=== PATIENT | female | born 1995 | race Caucasian/White ===

== ENCOUNTER → 2017-04-30 | Outpatient (CLI) | payer MEDICAID | LOC: LAB 15:49 | DX: Z36 Encounter for antenatal screening of mother (principal) ==

== ENCOUNTER 2017-05-07 21:31 | Outpatient (CLI) | payer MEDICAID ==
[~2017-05-07] VITALS: Ht 154.9 cm; Wt 82.6 kg
[~2017-05-07 21:31] MED LIST: ACYCLOVIR 400M400 MG PO; BACTROBAN2% TP; HYDROCORTISONE 1%1 % TP; KEFLEX 500MG.500 MG PO; NOMEDS XX; ORTHO TRI-CYCLE1 TA1 PO; PRENATAL PLUS1 TA1 PO; PYRIDIUM 200MG200 MG PO; SEPTRA DS 800 M1 TAB PO; TYLENOL W/CODEI1 TA2 PO
[2017-05-07 22:18] VITALS: BP 128/85
== END 2017-05-08 00:11 | disposition home or self-care (01) ==
LOC: OBOUT 21:31 → OB 21:31 → OBOUT 05-08 00:11
DX: O62.9 Abnormality of forces of labor, unspecified (principal); Z3A.37 37 weeks gestation of pregnancy

== ENCOUNTER 2017-05-08 08:39 | Outpatient (CLI) | payer MEDICAID ==
[~2017-05-08] VITALS: Ht 154.9 cm; Wt 83.5 kg
[2017-05-08 09:00] VITALS: BP 116/78
== END 2017-05-08 09:45 | disposition home or self-care (01) ==
LOC: OBOUT 08:39 → OB 08:39 → OBOUT 09:45
DX: O26.893 Other specified pregnancy related conditions, third trimester (principal); Z3A.37 37 weeks gestation of pregnancy; N89.8 Other specified noninflammatory disorders of vagina

== ENCOUNTER 2017-05-11 18:02 | Outpatient (CLI) | payer MEDICAID ==
[~2017-05-11] VITALS: Ht 154.9 cm; Wt 81.9 kg
[2017-05-11 17:45] VITALS: BP 131/83
[2017-05-11 18:42] LABS: URINE BILIRUBIN - DIPSTICK NEGATIVE (NEG); URINE BLOOD NEGATIVE (NEG)
[2017-05-11 19:30] LABS: URINE RENAL CELLS OCC #/HPF; URINE SQUAMOUS CELLS 20-50 #/hpf (0-5)
== END 2017-05-11 20:45 | disposition home or self-care (01) ==
LOC: OBOUT 18:02 → OB 18:04 → OBOUT 20:45
PROVIDERS: Obstetrics & Gynecology
DX: O60.03 Preterm labor without delivery, third trimester (principal); Z3A.38 38 weeks gestation of pregnancy; M54.5 Low back pain; R10.9 Unspecified abdominal pain

== ENCOUNTER 2017-05-15 11:10 | Inpatient (IN) | payer MEDICAID ==
[~2017-05-15] VITALS: Ht 154.9 cm; Wt 81.6 kg
[2017-05-15 11:39] VITALS: BP 120/82
--- NOTE | 2017-05-15 12:45 | HISTORY AND PHYSICAL REPORT ---
History and Physical Demographics Admission date: 05/15/17 Chief Complaint: Contractions Primary Diagnosis: IUP 38 11/06 Allergies: Coded Allergies: No Known Drug Intolerances (- 05/11/17) History of present illness: Cici is a 22yo at 38wks 4d who presents with complaints of worsening contractions since 9am. She denies LOF/VB. She endorses FM. Her has been uncomplicated thus far. She had a prior of viable female in 2014. That was also uncomplicated. Patient reports that she is GBS negative. Medical history Family history: Hypertension Yes Immunization history: DT/Tetanus Has Never Had Flu Refused Pneumonia Refuses Other history: Angina: No AL: No Hypertension? No Hyperlipidemia? No CHF? No COPD? No Asthma? No CVA? No Seizures? No Diabetes? No GB Disease: Yes MRSA? No TB? No Cancer? No Surgical history: Previous Surgery?N Current home meds: Reported Medications MULTIVIT-MIN W/FE-FA ( Multivitamin Tablet) 1 TAB PO DAILY Social history Smoking history: Type N/A Packs/day < 1 Pack Are you/the child exposed to second-hand smoke: No Alcohol: Alcohol: No History of drug use: Drug Use? No Physical exam: Addmission vital signs: 1ST Vital Signs Result Date Time B/P 120/82 05/15 1139 Temp 98.2 05/15 1139 Pulse 86 05/15 1139 Resp 18 05/15 1139 Exam: ABD: normal exam (gravid, non-tender) Genitourinary: normal voiding & quantity (SVE 6/90/0, bbow) Assessment and Plan: Problem List 1. Labor without complication Plan: Admit to L&D. NPO except ice chips. IVH per protocol. Vital signs per protocol. Continuous external monitoring and tocodynamometer. Anesthesia for epidural placement. Anticipate . at 1247
[2017-05-15 12:56] LABS: HEMOGLOBIN 11.8 g/dL (12.2-16.2); LYMPH # 2.6 K/mm3 (0.7-4.5); LYMPH % 19.9 % (10-50.0)
[2017-05-15 13:16] LABS: ABO BLOOD TYPE O; RH BLOOD TYPE POSITIVE
--- NOTE | 2017-05-15 14:42 | Delivery Note ---
Delivery note Delivery date: 05/15/17 Delivery time: 1420 Anesthesia: Epidural Was labor medically induced? No Gestational age in weeks: 38 weeks Days: 4 days Delivery prior to 39 weeks? Yes Justification for delivery: Active labor Sex: male score at one minute: 8 at 5 minutes: 9 Type of suction: bulb AF: clear Delivery procedure: Low Vacuum Delivery Delivery of placenta: spontaneous Clinical note heart rate was noted to decrease to 70 bpm with pushing. O2 was applied, scalp stimulation was tried. No increase in heart rate. Decision made to assist delivery with low vacuum. station noted to be +2, head in BC position. Vacuum applied, no vaginal or cervical tissue included. Single pull, no pop-offs. Vacuum removed at +4 station. Spontaneous delivery of head. Body followed without difficulty. Cord Clamped and cut and baby handed to waiting RN. Cord gases obtained. 3VC placenta delivered intact. No lacerations noted on exam. Fundus firm. at 1440
[2017-05-15 20:02] VITALS: BP 127/83
--- OUTSIDE RECORDS SUMMARY | 2017-05-16 03:48 | External Medical Summary Rpt | CCD ---
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 Performer Type Date OFFICE 16859 [facility] OUTPATIEN 7 7 PHYSICIAN T VISIT S GROUP 15 MINUTES [facility] T OFFICE 11894 [facility]PATI[facility] 7 7 PHYSICIAN T VISIT S GROUP 15 MINUTES OFFICE 63841 [facility] OUTPATI[facility] 7 7 PHYSICIAN T VISIT S GROUP 15 MINUTES OFFICE 53125 [facility] OUTPAT[facility] 7 7 PHYSICIAN T VISIT S GROUP 15 MINUTES [facility] - [facility] T OFFICE 78449 [facility] 7 7 PHYSICIAN T VISIT S GROUP 15 MINUTES OFFICE 72084 [facility] OUTPATI[facility] 7 7 PHYSICIAN T VISIT S GROUP 15 MINUTES OFFICE 35526 [facility] 7 [facility]IAN T VISIT S GROUP 15 MINUTES OFFICE 48884 [facility] 7 7 PHYSICIAN T VISIT S GROUP 15 MINUTES PERIODIC 98399 [facility] PREVENTIV 7 7 PHYSICIAN E MED EST S GROUP PATIENT 18-39 YRS OFFICE 17780 [facility] 6 6 PHYSICIAN T VISIT S GROUP 15 MINUTES OFFICE 56527 [facility] OUTPATIEN 6 6 PHYSICIAN ANH T VISIT S GROUP 15 MINUTES OFFICE 23309 [facility] OUTPATIEN 6 6 PHYSICIAN ANH T VISIT S GROUP 15 MINUTES OFFICE 26818 [facility] OUTPATIEN 6 6 JAREN KAMARA T VISIT 15 MINUTES PERIODIC 78216 [facility] PREVENTIV 6 6 PHYSICIAN ANH E MED EST S GROUP PATIENT 18-39 YRS [facility] - 5 5 [facility] INPATIENT INC OFFICE 74977 [facility] OUTPAT[facility] 5 5 JAREN KAMARA T VISIT 15 MINUTES OFFICE 05216 [facility] OUT[facility] 5 5 JAREN KAMARA T VISIT 15 MINUTES OFFICE 08097 [facility]PAT[facility] 5 5 JAREN KAMARA T VISIT 15 MINUTES [facility] - 5 5 [facility] OUT[facility] INC T OFFICE 62764 [facility] OUTPAT[facility] 5 5 JAREN KAMARA T VISIT 15 MINUTES OFFICE 68194 [facility] OUTPATIEN 5 5 JAREN KAMARA T VISIT 15 MINUTES OFFICE 75378 [facility] OUTPATIEN 5 5 JAREN KAMARA T VISIT 15 MINUTES OFFICE 33908 [facility] Dam[facility] OUTPATIEN 5 5 JAREN KAMARA T VISIT 15 MINUTES [facility] - 5 5 [facility] INC T OFFICE 97964 [facility] OUTPAT[facility] 5 5 JAREN KAMARA T VISIT 15 MINUTES [facility] - 5 5 [facility] OUTPAT[facility] INC T OFFICE 23283 [facility] OUTPATI[facility] 5 5 JAREN KAMARA T VISIT 15 MINUTES OFFICE 62132 [facility] OUTPATIEN 5 5 JAREN THOMAS ANH T VISIT 15 MINUTES [facility] - 5 5 [facility] OUTPATI[facility] INC T OFFICE 47194 [facility] OUT[facility] 5 5 JAREN KAMARA T VISIT 15 MINUTES OFFICE 68972 [facility] OUTPATIEN 5 5 JAREN THOMAS ANH T VISIT 15 MINUTES INITIAL 52172 [facility] PREVENTIV 5 5 JAREN KAMARA E MEDICINE NEW PT AGE 18-39YRS EMERGENCY 48349 [facility] DEPT 4 4 PRIMARY VISIT CARE HIGH PHYSICIAN SEVERITY& S THREAT FUN EMERGENCY 29604 SHAYNE WRIGHT 4 4 DEPARTMEN T VISIT MODERATE SEVERITY EMERGENCY 74913 ART[facility] FOLEY 4 4 YUDITH YUDITH DEPARTMEN T VISIT MODERATE SEVERITY [facility] - [facility] 4 [facility] OUT[facility] INC T EMERGENCY 90671 [facility] 4 4 [facility] DEPARTMEN INC T VISIT LOW/MODER SEVERITY EMERGENCY 43764 ARTI FOLEY 4 4 YUDITH YUDITH DEPARTMEN T VISIT HIGH/URGE NT SEVERITY OFFICE 17289 FAMILY OUTPATIEN 4 4 CARE T VISIT ASSOCIATE 15 S MINUTES Emergency KARLIE Foley MD (ER) 3 02:32 3 03:29 [facility] Emergency KARLIE Foley MD (ER) 3 08:11 3 09:11 [facility] OFFICE 97712 ETIENNE CARRASCO 3 3 [facility] T VISIT CENTER CENTER 10 MINUTES OFFICE 56864 MULBERRY MULBERRY OUTPATIEN 3 3 SARAH SARAH T VISIT 15 MINUTES PERIODIC 23773 [facility] PREVENTIV 2 2 [facility] CENTER PATIENT 18-39 YRS OFFICE 33189 FAMILY OUTPATIEN 2 2 CARE T VISIT ASSOCIATE 15 S MINUTES OFFICE 44045 [facility] OUTPATIEN 2 2 [facility] 15 HEAL HEAL MINUTES EMERGENCY 31511 [facility] 2 2 [facility] DEPARTMEN INC T VISIT LOW/MODER SEVERITY [facility] - 2 2 [facility] OUTPATIEN INC T EMERGENCY 14416 ARTI FOLEY 2 2 YUDITH YUDITH DEPARTMEN T VISIT HIGH/URGE NT SEVERITY OFFICE 24677 [facility] OUTPATIEN 1 1 [facility] 10 MINUTES OFFICE 27999 E[facility] OUTPATIEN 1 1 [facility] 10 MINUTES OFFICE 22794 [facility] OUTPATIEN 1 1 [facility] 10 MINUTES PERIODIC 94195 E[facility]IFT[facility] PREVENTIV 0 0 [facility]ENTER PATIENT 12-17YRS OFFICE 61993 E[facility] OUTPATIEN 0 0 [facility] 10 MINUTES OFFICE 63643 [facility] OUTPATIEN 0 0 [facility] 15 MINUTES OFFICE 56072 [facility] OUTPATIEN 0 0 [facility] 10 MINUTES OFFICE 58635 [facility] OUTPATIEN 9 [facility] 10 BANK ACCT MINUTES INITIAL 54998 [facility] PREVENTIV 9 [facility] MEDICINE BANK ACCT NEW PT AGE 12-17 YR
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
--- OUTSIDE RECORDS SUMMARY | 2017-05-16 03:51 | External Medical Summary Rpt | CCD ---
Author Author , BRANDIN Gonzalez BRANDIN Address Unknown Phone [email or web address] Interactive Care Team Providers Care Radio Intelligence Operator Name Role Phone [facility] Unavailable Unavailable PHYSICIANS, [facility] YULIANA JESUS, YULIANA JESUS Unavailable Unavailable [facility] Unavailable Unavailable [facility]ATOR[facility], [facility] Unavailable Unavailable [facility]ATORIES, [facility] Unavailable Unavailable DEPARTMENT, [facility] DEPART[facility] Unavailable Unavailable DEPARTMENT, [facility] DEPARTMENT [facility] Unavailable Unavailable [facility] Unavailable [facility], [facility] Unavailable Unavailable [facility], Unavailable Unavailable [facility] Unavailable Unavailable [facility], [facility] ARTI YUDITH, ARTI Unavailable Unavailable YUDITH CAL EASTMAN MD, Unavailable Unavailable CAL EASTMAN MD HARPEL, HARPEL Unavailable Unavailable [facility] ANH, HARPEL Unavailable Unavailable [facility] Unavailable Unavailable [place], [facility] Unavailable Unavailable [facility], [facility] Un[facility] Un[facility] Un[facility] Unavailable INC, [facility], Unavailable Unavailable [facility] Unavailable Unavailable [facility], [facility] Unavailable Unavailable [facility], [facility] MARCHINO CARINA, Unavailable Unavailable MARCHINO CARINA [facility] Unavailable Unavailable [facility] Unavailable Unavailable MULBERRY SARAH, Unavailable Unavailable MULBERRY SARAH MUL[facility] SARAH, Unavailable Unavailable MULBERRY SARAH [id number], Unavailable Unavailable [id number] Unavailable [facility]available [id number] # [id number], [facility] [id number] # [id number] SCIFRES ANG, SCIFRES Unavailable Unavailable ANG SCIFRES ANG, SCIFRES Unavailable Unavailable MARIBEL ARITA, Unavailable Unavailable CHILANGO SHE IBANEZ RAY, IBANEZ Unavailable Unavailable RAY MARCELLE RAY, IBANEZ Unavailable Unavailable RAY [facility] Unavailable Unavailable [facility] Unavailable [facility] SHAYNE EISENBERG ADRIANA Unavailable Unavailable SHAYNE EISENBERG Unavailable Unavailable Purpose Continuity of Care Document - 10-26-2007 through 2016 Problems Code Diagnosis DOS Provider Status Z3480 ENC 03-15-2017 [facility] SUPERVISION PHYSICIANS OT NORMAL GROUP PREG UNS TRIMESTER Z131 ENCOUNTER 02-25-2017 [place] SCREENING INC FOR DIABETES MELLITUS N760 ACUTE 02-12-2017 [facility] VAGINITIS PHYSICIANS GROUP Z3482 ENC 01-12-2017 [facility] SUPERVISION PHYSICIANS OTH NORMAL GROUP 2 TRIMESTER Z36 ENCOUNTER 12-22-2016 [facility] SCREENING OF MOTHER Z0100 ENCOUNTER 11-18-2016 [place] EXAM EYES & VISION W/O ABNORMAL FIND Z3481 ENC 11-09-2016 [facility] SUPERVISION PHYSICIANS OT NORMAL GROUP 1 TRIMESTER [id number] ATYP SQ 10-23-2016 [facility] CELLS UNDET PHYSICIANS GROUP SIGNIFICANC E CYTOL SMER CERV N938 OTHER SPEC 10-01-2016 [facility] ABNORMAL PHYSICIANS UTERINE & GROUP VAGINAL BLEEDING [id number] ENCOUNTER 10-01-2016 [facility] HOME SCHOOL LIAISON OFFICER EXAM PHYSICIANS GENERAL RTN GROUP W/O ABNORMAL FIND Z048 ENCOUNTER 10-01-2016 [facility] OBS[facility]ATION LABORATORIE OTHER SPEC S REASONS N879 DYSPLASIA 07-30-2016 [facility] OF [facility]ERV[facility] PHYSICIANS UTERI GROUP UNSPECIFIED B977 PAPILLOMAVI 11-14-2015 BIO DINO CAUSE REFERNCE OF DZ LABORATORIE CLASSIFIED S ELSEWHERE L00424 CERV HIGH 11-14-2015 [facility]IO RSK HUMAN REFERNCE PAPILLOMAVI LABORATORIE DINO DNA S TEST POS Z3009 ENCOUNTER 11-14-2015 [facility] OT GENERAL PHYSICIANS GROUP 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 84413 MATERNAL 03-22-2015 JAREN TALLEY MD WITH DELIVERY 650 NORMAL 03-22-2015 [facility] DELIVERY [facility] 17207 OTH&UNS CRD 03-22-2015 [facility] W/O COMPRS INC COMP L&D DELIV 76385 SECOND-DEGR 03-22-2015 [facility] LACERATION INC WITH DELIVERY 97583 FORCEPS/EXT 03-22-2015 [facility] W/O INC INDICATION- DELIVERED V270 OUTCOME OF 03-22-2015 [facility] DELIVERY [facility] SINGLE INC LIVEBORN V221 SUPERVISION 03-21-2015 ACL Damian OF EMILIA EASTMAN MD NORMAL 11520 TRANSIENT 03-15-2015 CAL Damian HYPERTENSIO JAREN THOMAS N OF ANTEPARTUM V069 NEED PROPH 03-01-2015 [facility] W/UNSPEC [facility] DEPT COMB YARA VACCINE V286 SCREENING 2015 [facility] STREPTOCOCC INC US B V2889 OTHER 12-20-2014 [facility] SPECIFIED [facility] INC SCREENING 36417 UNSPECIFIED 12-17-2014 CAL Damian VAGINITIS JAREN THOMAS AND VULVOVAGINI TIS 64784 THREATENED 12-01-2014 [facility] PREMATURE PHYSICIANS LABOR GROUP ANTEPARTUM 74367 OTHER 12-01-2014 [facility] SPECIFED [facility] COMPLICATIO INC N ANTEPARTUM 80864 OVERWEIGHT 11-20-2014 [facility] DEPARTMENT V653 DIETARY 11-20-2014 [facility] E AND DEPARTMENT COUNSELING 37926 PAP SMER 09-04-2014 CAL Damian CERV JAREN THOMAS W/ATYPICAL SQUAMOUS CELLS UNDET V7231 ROUTINE 08-14-2014 CAL Damian GYNECOLOGIC JAERN THOMAS AL EXAMINATION 6238 OTHER 03-22-2014 [facility] SPECIFIED CARE NONINFLAMMA PHYSICIANS TORY DISORDER VAGINA 85149 ABDOMINAL 03-22-2014 IBANEZ RAY PAIN, UNSPECIFIED SITE 29136 UNSPECIFIED 02-24-2014 SHAYNE WRIGHT SITE OF ANKLE SPRAIN AND STRAIN E9288 OTHER 02-24-2014 SHAYNE ADRIANA ACCIDENT 16162 PAIN IN 02-22-2014 [facility] FOOT 68814 SWELLING OF 02-22-2014 [facility] 9597 INJURY 02-22-2014 [facility] OTHER&UNSPE MEDICAL CIFIED [facility]EE [facility] LEG ANKLE&FOOT 5990 URINARY 12-07-2013 [facility] INFECTION INC SITE NOT SPECIFIED 6253 DYSMENORRHE 12-07-2013 [facility] 86902 CHEST PAIN 10-25-2013 [facility] UNSPECIFIED ASSOCIATES 73538 ABDOMINAL 10-25-2013 [facility] PAIN RIGHT ASSOCIATES UPPER QUADRANT V2541 SURVEILLANC 01-09-2013 [facility] E PREV HEALTH PRESCRIBED CENTER CONTRACEPT PILL V2689 OTHER 01-09-2013 [facility] SPECIFIED HEALTH PROCREATIVE CENTER MANAGEMENT 460 ACUTE 11-07-2012 MULBERRY NASOPHARYNG SARAH ITIS 7840 HEADACHE 04-05-2012 [facility] HEAL V720 EXAMINATION 02-26-2012 SCIFRSUNSHINE ANG OF EYES AND VISION 2662 OTHER 11-20-2010 [facility] B-COMPLEX HEALTH DEFICIENCIE CENTER S V2509 OTH GENERAL 11-20-2010 [facility] [place] [facility] CNSL&ADVICE CENTER CONTRACEPT MANAGEMENT V2549 SURVEILLANC 11-20-2010 [facility] E OTH PREV HEALTH PRSC CENTER CONTRACEPT METHOD V2501 GENERAL 08-29-2010 [facility] COUNSELING HEALTH PRESCRIPTIO CENTER N ORAL CONTRACEPTS V7241 08-29-2010 [facility] [place] EXAMINATION HEALTH OR TEST CENTER NEGATIVE RESULT V2502 GENERAL 06-13-2010 [facility] [place] CNSL HEALTH INITIATION CENTER OTH CONTRACEPT MEASURES Medications Na ND Rx Da Fi Fi [...] -0 .0 00 TE ti ON 13 3- 7- 00 01 ve [place] 19 20 [...] MG #3 93 TA 8 BL ET TR 64 04 04 5. [...] HLTH HLTH > IM DEPT DEPT [facility] Procedures Procedure DOS Code Location Performer Comment GLUCOSE 27390 [facility] GLUCOSE INC INC DOSE COLLECTIO 86854 [facility] N VENOUS 7 [facility] BLOOD INC INC VENIPUNCT URE SMR PRIM 43356 [facility] SRC WET 7 PHYSICIAN MOUNT S GROUP NFCT AGT US PREG 64339 [facility] UTERUS 7 PHYSICIAN AFTER 1ST S GROUP TRIMEST GESTATION COLLECTIO 08686 [facility] N VENOUS 7 [facility] BLOOD INC INC VENIPUNCT URE OPHTH 76744 [facility] 7 XM&EVAL COMPRE NEW PT 1/> VST DETERMINA 22241 [facility] TION 7 REFRACTIV E STATE US PREG 10043 [facility] UTERUS 7 PHYSICIAN REAL TIME S GROUP W/IMAGE DCMTN TRANSVAG IADNA 18982 BIO BIO CHLAMYDIA 7 REFERNCE REFERNCE LABORATOR LABORATOR TRACHOMAT IES IES IS AMPLIFIED PROBE TQ IADNA 49235 BIO BIO GARDNEREL 7 REFERNCE REFERNCE LA LABORATOR LABORATOR VAGINALIS IES IES QUANTIFIC ATION IADNA 84741 [facility] HERPES 7 PHYSICIAN SIMPLX S GROUP VIRUS DIRECT PROBE TQ IAADIADOO 75416 [facility] 7 PHYSICIAN TRICHOMON S GROUP VAGINALIS IADNA 12970 BIO BIO TRICHOMON 7 REFERNCE REFERNCE LABORATOR LABORATOR VAGINALIS IES IES AMPLIFIED PROBE TECH IADNA NOS 77462 BIO BIO 7 REFERNCE REFERNCE QUANTIFIC LABORATOR LABORATOR ATION IES IES EACH ORGANISM IADNA 34547 BIO BIO HUMAN 7 REFERNCE REFERNCE PAPILLOMA LABORATOR LABORATOR VIRUS IES IES HIGH-RISK TYPES URINLS 30225 [facility] DIP 7 PHYSICIAN PHYSICIAN STICK/TAB S GROUP S GROUP LET REAGNT NON-AUTO MICRSCPY URINE 08400 [facility] 7 PHYSICIAN TEST S GROUP VISUAL COLOR CMPRSN METHS CULTURE 04991 [facility] CHLAMYDIA 7 PHYSICIAN ANY S GROUP SOURCE IADNA 49587 BIO BIO SELMA 7 REFERNCE REFERNCE SPECIES LABORATOR LABORATOR AMPLIFIED IES IES PROBE TQ CYTP 81827 BIO BIO CERVICAL/ 7 REFERNCE REFERNCE VAGINAL LABORATOR LABORATOR REQ IES IES INTERP PHYSICIAN CYTP C/V 01391 BIO BIO AUTO THIN 7 REFERNCE REFERNCE LYR LABORATOR LABORATOR PREPJ SCR IES IES MNL RESCR PHYS IADNA 42504 BIO BIO HERPES 7 REFERNCE REFERNCE SOMPLX LABORATOR LABORATOR VIRUS IES IES AMPLIFIED PROBE TQ IADNA 81536 [facility] NEISSERIA 7 PHYSICIAN S GROUP GONORRHOE AE DIRECT PROBE TQ IADNA 58089 BIO BIO NEISSERIA 7 REFERNCE REFERNCE LABORATOR LABORATOR GONORRHOE IES IES AE AMPLIFIED PROBE TQ IADNA NOS 29123 BIO BIO 7 REFERNCE REFERNCE AMPLIFIED LABORATOR LABORATOR PROBE TQ IES IES EACH ORGANISM CONIZATIO 81501 [facility] N CERVIX 6 PHYSICIAN W/WO D&C S GROUP RPR ELTRD EXC ENDOCERVI 29893 [facility] GWEN 6 PHYSICIAN ANH CURETTAGE S GROUP W/DILATIO N & [place] [address] BIO BIO SURG 6 REFERNCE REFERNCE PATHOLOGY LABORATOR LABORATOR IES IES GROSS&YUDITH ROSCOPIC EXAM COLPOSCOP 26208 CAL EASTMAN Y CERVIX 6 JAREN KAMARA BX CERVIX & ENDOCRV CURRETAGE SMR PRIM 02659 CAL EASTMAN SRC WET 6 JAREN THOMAS AHN MOUNT NFCT AGT IADNA 15930 BIO BIO CHLAMYDIA 6 REFERNCE REFERNCE LABORATOR LABORATOR TRACHOMAT IES IES IS AMPLIFIED PROBE TQ IADNA 45635 BIO BIO TRICHOMON 6 REFERNCE REFERNCE LABORATOR LABORATOR VAGINALIS IES IES AMPLIFIED PROBE TECH URINLS 12758 [facility] DIP 6 PHYSICIAN ANH STICK/TAB S GROUP LET REAGNT NON-AUTO MICRSCPY IADNA 96211 BIO BIO HUMAN 6 REFERNCE REFERNCE PAPILLOMA LABORATOR LABORATOR VIRUS IES IES HIGH-RISK TYPES IADNA NOS 41828 BIO BIO 6 REFERNCE REFERNCE AMPLIFIED LABORATOR LABORATOR PROBE TQ IES IES EACH ORGANISM IADNA 68485 [facility] MARCHINO NEISSERIA 6 PHYSICIAN CARINA S GROUP GONORRHOE AE DIRECT PROBE TQ CULTURE 31279 [facility] CHLAMYDIA 6 PHYSICIAN ANH ANY S GROUP SOURCE CYTP C/V 62603 BIO BIO AUTO THIN 6 REFERNCE REFERNCE LYR LABORATOR LABORATOR PREPJ SCR IES IES MNL RESCR PHYS CYTP 25733 BIO BIO CERVICAL/ 6 REFERNCE REFERNCE VAGINAL LABORATOR LABORATOR REQ IES IES INTERP PHYSICIAN IADNA 54024 BIO BIO NEISSERIA 6 REFERNCE REFERNCE LABORATOR LABORATOR GONORRHOE IES IES AE AMPLIFIED PROBE TQ REPAIR OF 7569 [facility] OTHER [facility] CURRENT INC INC OBSTETRIC LACERATIO N NEURAXIAL 70764 [facility] LABOR 5 ANESTH SHE ANALG/ANE OF THE S PLND BLUE VAGINAL DELIVERY VAGINAL 94365 CAL R [facility] DELIVERY 5 JAREN KAMARA ONLY W/POSTPAR [facility]ERNARDINO CARE 84508 CAL Damian NONSTRESS 5 JAREN EASTMAN MD TEST 04772 CAL EASTMAN NONSTRESS 5 JAREN THOMAS ANH TEST TDAP 61392 [facility] YRS/> IM HLTH DEPT HLTH DEPT YARA YARA PARTICLE 62359 [facility] AGGLUTINA 5 [facility] TION INC INC SCREEN EACH ANTIBODY CUL 98937 CAL EASTMAN PRSMPTV 5 JAREN KAMARA PTHGNC ORGANISM SCRN W/COLONY ESTIMJ GLUCOSE 80149 [facility] POST [facility] GLUCOSE INC INC DOSE COLLECTIO 88076 [facility] N VENOUS 5 [facility] BLOOD INC INC VENIPUNCT URE SMR PRIM 77792 CAL EASTMAN SRC WET 5 J[place]EN [place] [address] [facility] INFUSION 5 [facility] THERAPY INC INC PROPHYLAX IS/[place] [address] [facility] INFUSION 5 [facility] THERAPY/P INC INC ROPHYLAXI S /DX 1ST TO 1 HR 25207 [facility] NONSTRESS 5 [facility] TEST INC INC CULTURE 02637 [facility] BACTERIAL 5 [facility] INC INC QUANTTATI VE COLONY COUNT URINE URNLS DIP 65644 [facility] 5 [facility] STICK/TAB INC INC LET REAGENT AUTO MICROSCOP Y MEDICAL 79565 [facility] NUTRITION 5 [facility] HEALTH RE-ASSMT& DEPARTMEN DEPARTMEN IVNTJ T T INDIV EA 15 M US PREG 24231 [facility] UTERUS 5 JAREN KAMARA AFTER 1ST TRIMEST GESTATION COLLECTIO 82761 [facility] N VENOUS 5 [facility] BLOOD INC INC VENIPUNCT URE ALPHA-FET 87370 [facility] OPROTEIN 5 [facility] SERUM INC INC GONADOTRO 84993 [facility] PIN 5 [facility] CHORION[place] [address] [facility] ESTRIOL 5 [facility] INC INC SMR PRIM 69527 CAL EASTMAN SRC WET 5 JAREN KAMARA MOUNT NFCT AGT COLPOSCOP 04746 CAL MOODYL Y CERVIX 5 JAREN KAMARA BX CERVIX & [place] [address] BIO BIO SURG 5 REFERNCE REFERNCE PATHOLOGY LABORATOR LABORATOR IES IES GROSS&YUDITH ROSCOPIC EXAM US PREG 81756 CAL EASTMAN UTERUS 5 JAREN KAMARA REAL TIME W/IMAGE DCMTN TRANSVAG IADNA 63391 CAL EASTMAN HERPES 5 JAREN KAMARA SIMPLX VIRUS DIRECT PROBE TQ URINLS 57995 CAL MOODYL DIP 5 JAREN KAMARA STICK/TAB LET REAGNT NON-AUTO MICRSCPY IAADIADOO 92781 CAL KAMARAALD R 5 JAREN EASTMAN MD TRICHOMON VAGINALIS IADNA 17481 [facility] EASTMAN NEISSERIA 5 JAREN KAMARA GONORRHOE AE DIRECT PROBE TQ URINE 32295 CAL EASTMAN 5 JAREN KAMARA TEST VISUAL COLOR CMPRSN METHS CULTURE 56322 CAL EASTMAN CHLAMYDIA [address] [place] [address] MARCELLE IBANEZ ABDOMEN & 4 LENCHO PELVIS W/O CONTRAST MATERIAL CRTCHS E0114 [facility] UNDARM 4 OTH THAN WOOD PAIR PAD TIP&HNDGR IP CRTCHS E0114 [facility]. UNDARM 4 OTH THAN WOOD PAIR PAD TIP&HNDGR IP RADEX 51517 [facility] ANKLE 4 MEDICAL ZEYAD COMPLETE IMAGING MINIMUM 3 ASS VIEWS COMPREHEN 44986 [facility] SIVE 4 [facility] METABOLIC INC INC PANEL CULTURE 94545 [facility] BCT 4 [facility] ISOL&PRSM INC INC PTV ID ISOLATE EA URINE CULTURE 88113 [facility] BACTERIAL 4 [facility] INC INC QUANTTATI VE COLONY COUNT URINE URNLS DIP 28619 [facility] 4 [facility] STICK/TAB INC INC LET REAGENT AUTO MICROSCOP Y SUSCEPTIB 97588 [facility] LTY STDY 4 [facility] ANTIMICRB INC INC IAL MICRO/AGA R DILUTJ BLOOD 51540 [facility] COUNT 4 [facility] COMPLETE INC INC AUTO&AUTO DIFRNTL WBC URINE 26327 [facility] 4 [facility] TEST INC INC VISUAL COLOR CMPRSN METHS BLOOD 08108 [facility] FAMILY COUNT 4 CARE CARE COMPLETE ASSOCIATE ASSOCIATE AUTO&AUTO S S DIFRNTL WBC COMPREHEN 92770 COMBINED COMBINED SIVE 4 PHYSICIAN PHYSICIAN METABOLIC S LA S LA PANEL ANTIBODY 15330 COMBINED COMBINED HELICOBAC [address] [place] [address] COMBINED COMBINED AMYLASE 4 [place] [address] [facility] LIPASE 4 OF ILANA ILANA HOLDINGS HOLDINGS CONTRACEP S4993 [facility] TIVE 3 [facility] CONTROL BLOOD 76474 [facility] MUL[facility] COUNT 3 SARAH SARAH COMPLETE AUTO&AUTO DIFRNTL WBC IAADIADOO 00605 [facility] MULBERRY 3 SARAH SARAH STREPTOCO CCUS GROUP A CONTRACEP S4993 [facility] TIVE 2 [facility] CONTROL IADNA 84104 [facility] CHLAMYDIA 2 [facility] CENTER TRACHOMAT IS AMPLIFIED PROBE TQ IADNA 07572 [facility] NEISSERIA [address] [facility] GONORRHOE AE AMPLIFIED PROBE TQ IAADIADOO 81051 FAMILY FAMILY 2 CARE CARE STREPTOCO ASSOCIATE ASSOCIATE CCUS S S GROUP A BLOOD 67345 [facility] FAMILY COUNT 2 CARE CARE COMPLETE ASSOCIATE ASSOCIATE AUTO&AUTO S S DIFRNTL WBC URINE 71768 [facility] 2 [facility] TEST INC INC VISUAL COLOR CMPRSN METHS URNLS DIP 76242 [facility] 2 [facility] STICK/TAB INC INC LET REAGENT AUTO MICROSCOP Y CULTURE 38001 [facility] BACTERIAL 2 [facility] INC INC QUANTTATI VE COLONY COUNT URINE DETERMINA 23402 SCIFRES SCIFRES TION 2 ANG ANG REFRACTIV E STATE OPHTH 72301 SCIFRES SCIFRES MEDICAL 2 ANG ANG XM&EVAL COMPRHNSV ESTAB PT 1/> CONTRACEP S4993 [facility] TIVE 1 [facility] CONTROL CONTRACEP S4993 [facility] TIVE 1 [facility] CONTROL CONTRACEP A4267 [facility] TIVE 1 [facility] HEALTH SUPPLY CENTER CENTER CONDOM MALE EACH URINE 17917 [facility] 1 [facility] HEALTH TEST CENTER CENTER VISUAL COLOR CMPRSN METHS CONTRACEP A4267 [facility] TIVE 1 [facility] SUPPLY CENTER CENTER CONDOM MALE EACH CONTRACEP J7304 [facility] TIVE 1 [facility] SUPPLY [facility] HORMONE CONTAININ G PATCH EA CONTRACEP J7304 [facility] TIVE 0 [facility] SUPPLY [facility] HORMONE CONTAININ G PATCH EA IADNA 74778 [facility] NEISSERIA [address] [facility] GONORRHOE AE AMPLIFIED PROBE TQ IADNA 44201 [facility] CHLAMYDIA [address] [facility] TRACHOMAT IS AMPLIFIED PROBE TQ INJ J1055 [facility] MDRXYPRGE 0 [facility] ACTAT CNTRACPT USE 150 MG INJ J1055 [facility] MDRXYPRGE 0 [facility] ACTAT CNTRACPT USE 150 MG INJ J1055 [facility] MDRXYPRGE 0 [facility] ACT[facility] CNTRACPT USE 150 MG IN[facility] J1055 [facility] MDRXYPRGE 9 [facility] ACTAT BANK ACCT CNTRACPT USE 150 MG URINE 24818 [facility] [address] [place] [address] TEST [facility] VISUAL BANK ACCT COLOR CMPRSN METHS URINE 11646 [facility] [address] [place] [address] TEST [facility] VISUAL BANK ACCT COLOR CMPRSN METHS BLOOD 48538 [facility] COUNT 9 [facility] HEMOGLOBI [facility] N BANK ACCT IADNA 65656 [facility] CHLAMYDIA 9 [facility] TRACHOMAT BANK ACCT IS AMPLIFIED PROBE TQ IADNA 94961 [facility] NEISSERIA 9 [facility] GONORRHOE BANK ACCT AE AMPLIFIED PROBE TQ Encounters Encounter Start End Date Code Location Performer Type Date OFFICE 45325 [facility] OUTPATIEN 7 7 PHYSICIAN T VISIT S GROUP 15 MINUTES [facility]OSP[facility] - 7 7 [facility] OUTPATIEN INC T OFFICE 52391 [facility] OUTPATIEN 7 7 PHYSICIAN T VISIT S GROUP 15 MINUTES OFFICE 87853 [facility] OUTPATIEN 7 7 PHYSICIAN T VISIT S GROUP 15 MINUTES OFFICE 58630 [facility] OUTPATIEN 7 7 PHYSICIAN T VISIT S GROUP 15 MINUTES HOSPITAL [facility] - 7 7 [facility] OUTPATIEN INC T OFFICE 99537 [facility] OUTPATIEN 7 7 PHYSICIAN T VISIT S GROUP 15 MINUTES OFFICE 29841 [facility] OUTPATIEN 7 7 PHYSICIAN T VISIT S GROUP 15 MINUTES OFFICE 64374 [facility] OUTPATIEN 7 7 PHYSICIAN T VISIT S GROUP 15 MINUTES OFFICE 22463 [facility] OUTPATIEN 7 7 PHYSICIAN T VISIT S GROUP 15 MINUTES PERIODIC 42808 [facility] PREVENTIV 7 7 PHYSICIAN E MED EST S GROUP PATIENT 18-39 YRS OFFICE 29370 [facility] OUT[facility] 6 6 PHYSICIAN T VISIT S GROUP 15 MINUTES OFFICE 16516 [facility] OUT[facility] 6 6 PHYSICIAN ANH T VISIT S GROUP 15 MINUTES OFFICE 21112 [facility] OUT[facility] 6 6 PHYSICIAN ANH T VISIT S GROUP 15 MINUTES OFFICE 35288 [facility] R [facility] OUTPATIEN 6 6 JAREN THOMAS ANH T VISIT 15 MINUTES PERIODIC 40068 [facility] PREVENTIV 6 6 PHYSICIAN ANH E MED EST S GROUP PATIENT 18-39 YRS [facility] - [facility] OFFICE 97849 [facility] OUT[facility]IEN 5 5 JAREN THOMAS ANH T VISIT 15 MINUTES OFFICE 34163 [facility] OUTPATIEN 5 5 JAREN THOMAS ANH T VISIT 15 MINUTES OFFICE 47106 [facility] 5 5 JAREN THOMAS ANH T VISIT 15 MINUTES OFFICE 28195 [facility] OUTPATIEN 5 5 JAREN THOMAS ANH T VISIT 15 MINUTES [facility] T OFFICE 59646 [facility] OUTPATI[facility] 5 5 JAREN KAMARA T VISIT 15 MINUTES OFFICE 38287 [facility] OUTPAT[facility] 5 5 JAREN KAMARA T VISIT 15 MINUTES OFFICE 42477 [facility] OUT[facility] 5 5 JAREN KAMARA T VISIT 15 MINUTES [facility] T OFFICE 58078 [facility] 5 5 JAREN KAMARA T VISIT 15 MINUTES [facility] 5 5 [facility] T OFFICE 31162 [facility] OUTPAT[facility] 5 5 JAREN KAMARA T VISIT 15 MINUTES OFFICE 91388 [facility] OUTPATIEN 5 5 JAREN KAMARA T VISIT 15 MINUTES [facility] T OFFICE 57962 [facility] 5 5 JAREN KAMARA T VISIT 15 MINUTES OFFICE 28975 [facility] 5 5 JAREN KAMARA T VISIT 15 MINUTES INITIAL 55183 [facility] PREVENTIV 5 5 JAREN KAMARA E MEDICINE NEW PT AGE 18-39YRS EMERGENCY 91568 [facility] DEPT 4 4 PRIMARY VISIT CARE HIGH PHYSICIAN SEVERITY& S THREAT FUNJ EMERGENCY 62286 SHAYNE WRIGHT 4 4 DEPARTMEN T VISIT MODERATE SEVERITY EMERGENCY 54662 [facility] 4 4 YUDITH YUDITH DEPARTMEN T VISIT MODERATE SEVERITY EMERGENCY 09018 [facility] 4 [facility] DE[facility] T VISIT LOW/MODER SEVERITY [facility] - [facility] 4 [facility] OUT[facility] T EMERGENCY 40509 [facility] 4 4 YUDITH YUDITH DEPARTMEN T VISIT HIGH/URGE NT SEVERITY OFFICE 07669 FAMILY OUTPATIEN 4 4 CARE T VISIT ASSOCIATE 15 S MINUTES OFFICE 93755 [facility] 3 [facility] 10 MINUTES OFFICE 83351 [facility] OUTPATIEN 3 3 SARAH SARAH T VISIT 15 MINUTES PERIODIC 10447 [facility] PREVENTIV 2 2 [facility] CENTER PATIENT 18-39 YRS OFFICE 45156 FAMILY OUTPATIEN 2 2 CARE T VISIT ASSOCIATE 15 S MINUTES OFFICE 80376 [facility] OUTPATIEN 2 2 [facility] - [facility] 2 [facility] OUT[facility] T EMERGENCY 97229 [facility] 2 2 [facility] DEPARTMEN INC T VISIT LOW/MODER SEVERITY EMERGENCY 49434 [facility] 2 2 YUDITH YUDITH DEPARTMEN T VISIT HIGH/URGE NT SEVERITY OFFICE 37686 [facility]IEN 1 1 [facility] 10 MINUTES OFFICE 45244 [facility] OUTPATIEN 1 1 [facility] 10 MINUTES OFFICE [id number] [facility] 10 MINUTES PERIODIC [id number] [facility] PREVENTIV 0 [facility] PATIENT 12-17YRS OFFICE [id number] [facility] 10 MINUTES OFFICE [id number] [facility] OUTPATI[facility] 0 [facility] 15 MINUTES OFFICE 37211 [facility] 10 MINUTES OFFICE 32831 [facility] 10 BANK ACCT MINUTES INITIAL [id number] [facility] PRE[facility]IV 9 [facility] MEDICINE B[facility] ACCT NEW PT AGE 12-17 YR
--- OUTSIDE RECORDS SUMMARY | 2017-05-16 03:51 | External Medical Summary Rpt | CCD ---
Author Author , BRANDIN Gonzalez BRANDIN Address Unknown Phone [email or web address] Care Team Providers Care Plumbing Designer Name Role Phone [facility] Unavailable Unavailable [facility]IC[facility], [facility] YULIANA JESUS, YULIANA JESUS Unavailable Unavailable [facility] Unavailable Unavailable [facility], [facility] Unavailable Unavailable [facility]ATORIES, [facility] Unavailable Unavailable DEPARTMENT, [facility] Unavailable Unavailable DEPARTMENT, [facility] Unavailable Unavailable [facility] Unavailable [facility], [facility] [place] [place], Unavailable Unavailable [facility] Unavailable [facility], [facility] ARTI YUDITH, ARTI Unavailable Unavailable YUDITH CAL EASTMAN MD, Unavailable Unavailable CAL EASTMAN MD HARPEL, HARPEL Unavailable Unavailable [facility] ANH, HARPEL Unavailable Unavailable [facility] Unavailable Unavailable [place] Unavailable [facility]available [place] Unavailable Un[facility] Un[facility] Un[facility] Unavailable INC, [facility] Unavailable Unavailable [facility] GROUP [facility] Unavailable [facility]available [facility], [facility] Unavailable Unavailable [facility], [facility] MARCHINO CARINA, Unavailable Unavailable MARCHINO CARINA [facility] Unavailable Unavailable [facility] Unavailable Unavailable MULBERRY SARAH, Unavailable Unavailable MULBERRY SARAH MULBERR[facility] SARAH, Unavailable Unavailable MULBERRY SARAH [id number], Unavailable Unavailable [id number] Unavailable [facility]available [address] [address] [id number], [facility] [address] # [phone] SCIFRES ANG, SCIFRES Unavailable Unavailable ANG SCIFRES ANG, SCIFRES Unavailable Unavailable MARIBEL ARITA, Unavailable Unavailable CHILANGO SHE IBANEZ RAY, IBANEZ Unavailable Unavailable RAY MARCELLE RAY, IBANEZ Unavailable Unavailable [facility] Unavailable Unavailable DEPT [facility] DEPT [facility] Unavailable [facility]available [facility] DEPT [facility] SHAYNE EISENBERG ADRIANA Unavailable Unavailable SHAYNE EISENBERG Unavailable Unavailable Purpose Continuity of Care Document - 10-26-2007 through 2016 Problems Code Diagnosis DOS Provider Status [id number] ENC 03-15-2017 [facility] SUPERVISION PHYSICIANS OT NORMAL GROUP PREG UNS TRIMESTER Z131 ENCOUNTER 02-25-2017 [facility] S[facility] FOR DIABETES MELLITUS N760 ACUTE 02-12-2017 [facility] VAGINITIS PHYSICIANS GROUP Z3482 ENC 01-12-2017 [facility] SUPERVISION PHYSICIANS OTH NORMAL GROUP 2 TRIMESTER Z36 ENCOUNTER 12-22-2016 [facility] SCREENING OF MOTHER Z0100 ENCOUNTER 11-18-2016 [facility] EXAM EYES & VISION W/O ABNORMAL FIND Z3481 ENC 11-09-2016 [facility] SUPERVISION PHYSICIANS OT NORMAL GROUP 1 TRIMESTER [id number] ATYP SQ 10-23-2016 [facility] CELLS UNDET PHYSICIANS GROUP SIGNIFICANC E CYTOL SMER CERV N938 OTHER SPEC 10-01-2016 [facility] ABNORMAL PHYSICIANS UTERINE & GROUP VAGINAL BLEEDING [id number] ENCOUNTER 10-01-2016 [facility] LOGISTIC SPECIALIST EXAM PHYSICIANS GENERAL RTN GROUP W/O ABNORMAL FIND Z048 ENCOUNTER 10-01-2016 [facility]BS[facility]ATION LABORATORIE OTHER SPEC S REASONS N879 DYSPLASIA 07-30-2016 [facility] OF CERVIX PHYSICIANS UTERI GROUP UNSPECIFIED B977 PAPILLOMAVI 11-14-2015 [facility] D[facility] CAUSE [facility] OF DZ LABORATORIE CLASSIFIED S ELSEWHERE [id number] CERV HIGH 11-14-2015 [facility]IO RSK HUMAN REF[facility]OM[facility]I LABORATORIE DINO DNA S TEST POS Z3009 ENCOUNTER 11-14-2015 [facility] OT GENERAL PHYSICIANS GROUP 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 ICE 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 10352 MATERNAL 03-22-2015 JAREN TALLEY MD WITH DELIVERY 650 NORMAL 03-22-2015 [facility] DELIVERY [facility] 65396 OTH&UNS CRD 03-22-2015 [facility] W/O COMPRS INC COMP L&D DELIV 46764 SECOND-DEGR 03-22-2015 [facility] LACERATION INC WITH DELIVERY 45165 FORCEPS/EXT 03-22-2015 [facility] W/O INC INDICATION- DELIVERED V270 OUTCOME OF 03-22-2015 [facility] DELIVERY [facility] SINGLE INC LIVEBORN V221 SUPERVISION 03-21-2015 CAL Damian OF EMILIA EASTMAN MD NORMAL 58128 TRANSIENT 03-15-2015 CAL Damian HYPERTENSIO JAREN THOMAS N OF ANTEPARTUM V069 NEED PROPH 03-01-2015 [facility] W/UNSPEC [facility] DEPT COMB YARA VACCINE V286 SCREENING 2015 [facility] OF [facility] STREPTOCOCC INC US B V2889 OTHER 12-20-2014 [facility] SPECIFIED [facility] INC SCREENING 84807 UNSPECIFIED 12-17-2014 CAL Damian VAGINITIS JAREN THOMAS AND VULVOVAGINI TIS 13132 THREATENED 12-01-2014 [facility] PREMATURE PHYSICIANS LABOR GROUP ANTEPARTUM 49132 OTHER 12-01-2014 [facility] SPECIFED [facility] COMPLICATIO INC N ANTEPARTUM 69110 OVERWEIGHT 11-20-2014 [facility] V653 DIETARY 11-20-2014 [facility] COUNSELING 92491 PAP SMER 09-04-2014 CAL Damian CERV JAREN THOMAS W/ATYPICAL SQUAMOUS CELLS UNDET V7231 ROUTINE 08-14-2014 CAL Damian GYNECOLOGIC JAREN THOMAS AL EXAMINATION 6238 OTHER 03-22-2014 [facility] SPECIFIED CARE NONINFLAMMA PHYSICIANS TORY DISORDER VAGINA 89664 ABDOMINAL 03-22-2014 IBANEZ RAY PAIN, UNSPECIFIED SITE 57520 UNSPECIFIED 02-24-2014 SHAYNE WRIGHT SITE OF ANKLE SPRAIN AND STRAIN E9288 OTHER 02-24-2014 SHAYNE ADRIANA ACCIDENT 82121 PAIN IN 02-22-2014 [place] [facility] FOOT 04347 SWELLING OF 02-22-2014 [facility] 9597 INJURY 02-22-2014 [place] OTHER&UNSPE MEDICAL CIFIED KNEE [facility] LEG ANKLE&FOOT 5990 URINARY 12-07-2013 [facility] INFECTION INC SITE NOT SPECIFIED 6253 DYSMENORRHE 12-07-2013 [facility]pez [facility] INC 00745 CHEST PAIN 10-25-2013 [facility] UNSPECIFIED ASSOCIATES 29083 ABDOMINAL 10-25-2013 [facility] PAIN RIGHT ASSOCIATES [...] CENTER S V2509 OTH GENERAL 11-20-2010 [facility] CNS[facility]ICE [facility] CONTRACEPT MANAGEMENT V2549 SURVEILLANC 11-20-2010 [facility] E OTH PREV HEALTH PRSC CENTER CONTRACEPT METHOD V2501 GENERAL 08-29-2010 [facility] [place] COUNSELING HEALTH PRESCRIPTIO CENTER N ORAL CONTRACEPTS V7241 08-29-2010 [facility] EXAMINATION HEALTH OR TEST CENTER NEGATIVE RESULT V2502 GENERAL 06-13-2010 [facility] INITIATION CENTER OTH CONTRACEPT MEASURES [...] HLTH HLTH > IM DEPT DEPT YARA [facility] Procedures Procedure DOS Code Location Performer Comment GLUCOSE 67210 [facility] GLUCOSE INC INC DOSE COLLECTIO 34774 [facility] N VENOUS 7 [facility] BLOOD INC INC VENIPUNCT URE SMR PRIM 76323 [facility] SRC WET 7 PHYSICIAN [place] S GROUP NFCT AGT US PREG 88264 [facility] UTERUS 7 PHYSICIAN AFTER 1ST S GROUP TRIMEST GESTATION COLLECTIO 39034 [facility] N VENOUS 7 [facility] BLOOD INC INC VENIPUNCT URE OPHTH 68822 [facility] 7 XM&EVAL COMPRE NEW PT 1/> VST DETERMINA 54074 [facility] TION 7 REFRACTIV E STATE US PREG 26769 [facility] UTERUS 7 PHYSICIAN REAL TIME S GROUP W/IMAGE DCMTN TRANSVAG IADNA 51487 BIO BIO CHLAMYDIA 7 REFERNCE REFERNCE LABORATOR LABORATOR TRACHOMAT IES IES IS AMPLIFIED PROBE TQ IADNA 97882 BIO BIO GARDNEREL 7 REFERNCE REFERNCE LA LABORATOR LABORATOR VAGINALIS IES IES QUANTIFIC ATION IADNA 01305 [facility] HERPES 7 PHYSICIAN SIMPLX S GROUP VIRUS DIRECT PROBE TQ IAADIADOO 24334 [facility] 7 PHYSICIAN TRICHOMON S GROUP VAGINALIS IADNA 81874 BIO BIO TRICHOMON 7 REFERNCE REFERNCE LABORATOR LABORATOR VAGINALIS IES IES AMPLIFIED PROBE TECH IADNA NOS 56790 BIO BIO 7 REFERNCE REFERNCE QUANTIFIC LABORATOR LABORATOR ATION IES IES EACH ORGANISM IADNA 41075 BIO BIO HUMAN 7 REFERNCE REFERNCE PAPILLOMA LABORATOR LABORATOR VIRUS IES IES HIGH-RISK TYPES URINLS 89217 [facility] DIP 7 PHYSICIAN PHYSICIAN STICK/TAB S GROUP S GROUP LET REAGNT NON-AUTO MICRSCPY URINE 76138 [facility] HARPEL 7 PHYSICIAN TEST S GROUP VISUAL COLOR CMPRSN METHS CULTURE 15619 [facility] CHLAMYDIA 7 PHYSICIAN ANY S GROUP SOURCE IADNA 98131 BIO BIO SELMA 7 REFERNCE REFERNCE SPECIES LABORATOR LABORATOR AMPLIFIED IES IES PROBE TQ CYTP 96365 BIO BIO CERVICAL/ 7 REFERNCE REFERNCE VAGINAL LABORATOR LABORATOR REQ IES IES INTERP PHYSICIAN CYTP C/V 52502 BIO BIO AUTO THIN 7 REFERNCE REFERNCE LYR LABORATOR LABORATOR PREPJ SCR IES IES MNL RESCR PHYS IADNA 27770 BIO BIO HERPES 7 REFERNCE REFERNCE SOMPLX LABORATOR LABORATOR VIRUS IES IES AMPLIFIED PROBE TQ IADNA 77372 [facility] NEISSERIA 7 PHYSICIAN S GROUP GONORRHOE AE DIRECT PROBE TQ IADNA 63708 BIO BIO NEISSERIA 7 REFERNCE REFERNCE LABORATOR LABORATOR GONORRHOE IES IES AE AMPLIFIED PROBE TQ IADNA NOS 52078 BIO BIO 7 REFERNCE REFERNCE AMPLIFIED LABORATOR LABORATOR PROBE TQ IES IES EACH ORGANISM CONIZATIO 17984 [facility] N CERVIX 6 PHYSICIAN W/WO D&C S GROUP RPR ELTRD EXC ENDOCERVI 79250 [facility] GWEN 6 PHYSICIAN ANH CURETTAGE S GROUP W/DILATIO N & [place] [address] BIO BIO SURG 6 REFERNCE REFERNCE PATHOLOGY LABORATOR LABORATOR IES IES GROSS&YUDITH ROSCOPIC EXAM COLPOSCOP 46185 [facility] EASTMAN Y CERVIX 6 JAREN KAMARA BX CERVIX & ENDOCRV CURRETAGE SMR PRIM 96969 CAL EASTMAN SRC WET 6 JAREN THOMAS ANH MOUNT NFCT AGT IADNA 31300 BIO BIO CHLAMYDIA 6 REFERNCE REFERNCE LABORATOR LABORATOR TRACHOMAT IES IES IS AMPLIFIED PROBE TQ IADNA 97550 BIO BIO TRICHOMON 6 REFERNCE REFERNCE LABORATOR LABORATOR VAGINALIS IES IES AMPLIFIED PROBE TECH URINLS 62821 [facility] DIP 6 PHYSICIAN ANH STICK/TAB S GROUP LET REAGNT NON-AUTO MICRSCPY IADNA 18238 BIO BIO HUMAN 6 REFERNCE REFERNCE PAPILLOMA LABORATOR LABORATOR VIRUS IES IES HIGH-RISK TYPES IADNA NOS 38184 BIO BIO 6 REFERNCE REFERNCE AMPLIFIED LABORATOR LABORATOR PROBE TQ IES IES EACH ORGANISM IADNA 05814 [facility] MARCHINO NEISSERIA 6 PHYSICIAN ACRINA S GROUP GONORRHOE AE DIRECT PROBE TQ CULTURE 43527 [facility] CHLAMYDIA 6 PHYSICIAN ANH ANY S GROUP SOURCE CYTP C/V 31793 BIO BIO AUTO THIN 6 REFERNCE REFERNCE LYR LABORATOR LABORATOR PREPJ SCR IES IES MNL RESCR PHYS CYTP 60218 BIO BIO CERVICAL/ 6 REFERNCE REFERNCE VAGINAL LABORATOR LABORATOR REQ IES IES INTERP PHYSICIAN IADNA 04047 BIO BIO NEISSERIA 6 REFERNCE REFERNCE LABORATOR LABORATOR GONORRHOE IES IES AE AMPLIFIED PROBE TQ REPAIR OF 7569 [facility] OTHER 5 [facility] CURRENT INC INC OBSTETRIC LACERATIO N NEURAXIAL 23268 [facility] 5 ANESTH SHE ANALG/ANE OF THE S PLND BLUE VAGINAL DELIVERY VAGINAL 94226 CAL R [facility] DELIVERY 5 JAREN KAMARA ONLY W/POSTPAR BERNARDINO CARE 91820 CAL Damian NONSTRESS 5 JAREN EASTMAN MD TEST 51236 [facility] EASTMAN NONSTRESS 5 JAREN THOMAS ANH TEST TDAP 86602 [facility] Y[facility]/> IM HLTH DEPT HLTH DEPT YARA YARA PARTICLE 86495 [facility] AGGLUTINA 5 [facility] TION INC INC SCREEN EACH ANTIBODY CUL 67818 CAL EASTMAN PRSMPTV 5 JAREN KAMARA PTHGNC ORGANISM SCRN W/COLONY ESTIMJ GLUCOSE 25151 [facility] POST [facility] GLUCOSE INC INC DOSE COLLECTIO 16279 [facility] N VENOUS 5 [facility] BLOOD INC INC VENIPUNCT URE SMR PRIM 17812 CAL EASTMAN SRC WET 5 J[place] [address] [facility] INFUSION 5 [facility] THERAPY INC INC PROPHYLAX IS/[place] [address] [facility] INFUSION 5 [facility] THERAPY/P INC INC ROPHYLAXI S /DX 1ST TO 1 HR [address] [facility] NONSTRESS 5 [facility] TEST INC INC CULTURE 23254 [facility] BACTERIAL 5 [facility] INC INC QUANTTATI VE COLONY COUNT URINE URNLS DIP 49551 [facility] 5 [facility] STICK/TAB INC INC LET REAGENT AUTO MICROSCOP Y MEDICAL 62492 [facility] N[facility]ITION [facility] RE-ASSMT& DEPARTMEN DEPARTMEN IVNTJ T T INDIV EA 15 M US PREG 23661 [facility] UTERUS 5 JAREN KAMARA AFTER 1ST TRIMEST GESTATION COLLECTIO 00163 [facility] N VENOUS 5 [facility] BLOOD INC INC VENIPUNCT URE ALPHA-FET 28537 [facility] OPROTEIN 5 [facility] SERUM INC INC GONADOTRO 63077 [facility] PIN 5 [facility] [place] [address] [facility] ESTRIOL 5 [facility] INC INC SMR PRIM 81709 CAL EASTMAN SRC WET 5 JAREN KAMARA MOUNT NFCT AGT COLPOSCOP 37327 CAL MOODYL Y CERVIX 5 JAREN KAMARA BX CERVIX & [place] [address] BIO BIO SURG 5 REFERNCE REFERNCE PATHOLOGY LABORATOR LABORATOR IES IES GROSS&YUDITH ROSCOPIC EXAM US PREG 99650 [facility] UTERUS 5 JAREN KAMARA REAL TIME W/IMAGE DCMTN TRANSVAG IADNA 97196 [facility] EASTMAN HERPES 5 JAREN KAMARA SIMPLX VIRUS DIRECT PROBE TQ URINLS 47948 CAL MOODYL DIP 5 JAREN KAMARA STICK/TAB LET REAGNT NON-AUTO MICRSCPY IAADIADOO 63690 CAL KAMARAALD R 5 JAREN EASTMAN MD TRICHOMON VAGINALIS IADNA 80170 [facility] EASTMAN NEISSERIA 5 JAREN KAMARA GONORRHOE AE DIRECT PROBE TQ URINE 86079 [facility] EASTMAN 5 JAREN KAMARA TEST VISUAL COLOR CMPRSN METHS CULTURE 64645 [facility] EASTMAN CHLAMYDIA [address] [place] [address] MARCELLE IBANEZ ABDOMEN & 4 LENCHO PELVIS W/O CONTRAST MATERIAL CRTCHS E0114 [facility] UNDARM 4 OTH THAN WOOD PAIR PAD TIP&HNDGR IP CRTCHS E0114 [facility] UNDARM 4 OTH THAN WOOD PAIR PAD TIP&HNDGR IP RADEX 67628 NATAN [facility]ERSON ANKLE 4 MEDICAL ZEYAD COMPLETE IMAGING MINIMUM 3 ASS VIEWS COMPREHEN 64929 [facility] SIVE 4 [facility] METABOLIC INC INC PANEL CULTURE 29315 [facility] BCT 4 [facility] ISOL&PRSM INC INC PTV ID ISOLATE EA URINE CULTURE 87647 [facility] BACTERIAL 4 [facility] INC INC QUANTTATI VE COLONY COUNT URINE URNLS DIP 59430 [facility] 4 [facility] STICK/TAB INC INC LET REAGENT AUTO MICROSCOP Y SUSCEPTIB 40459 [facility] LTY STDY 4 [facility] ANTIMICRB INC INC IAL MICRO/AGA R DILUTJ BLOOD 90593 [facility] COUNT 4 [facility] COMPLETE INC INC AUTO&AUTO DIFRNTL WBC URINE 04901 [facility] 4 [facility] TEST INC INC VISUAL COLOR CMPRSN METHS BLOOD 81137 [facility] COUNT 4 CARE CARE COMPLETE ASSOCIATE ASSOCIATE AUTO&AUTO S S DIFRNTL WBC COMPREHEN 01357 COMBINED COMBINED SIVE 4 PHYSICIAN PHYSICIAN METABOLIC S LA S LA PANEL ANTIBODY 03409 COMBINED COMBINED HELICOBAC [address] [place] [address] COMBINED COMBINED AMYLASE 4 [place] [address] [facility] LIPASE 4 OF ILANA ILANA HOLDINGS HOLDINGS CONTRACEP S4993 [facility] TIVE 3 [facility] CONTROL BLOOD 86807 MUL[facility]Y MULBERRY COUNT 3 SARAH SARAH COMPLETE AUTO&AUTO DIFRNTL WBC IAADIADOO 00497 MUL[facility]Y MULBERRY 3 SARAH SARAH STREPTOCO CCUS GROUP A CONTRACEP S4993 [facility] TIVE [facility] CONTROL IADNA 11858 [facility] CHLAMYDIA 2 [facility] C[facility] TRACHOMAT IS AMPLIFIED PROBE TQ IADNA 42425 [facility] NEISSERIA 2 [facility] GONORRHOE AE AMPLIFIED PROBE TQ IAADIADOO 47347 FAMILY FAMILY 2 CARE CARE STREPTOCO ASSOCIATE ASSOCIATE CCUS S S GROUP A BLOOD 07716 [facility] COUNT 2 CARE CARE COMPLETE ASSOCIATE ASSOCIATE AUTO&AUTO S S DIFRNTL WBC URINE 81685 [facility] 2 [facility] TEST INC INC VISUAL COLOR CMPRSN METHS URNLS DIP 91517 [facility] 2 [facility] STICK/TAB INC INC LET REAGENT AUTO MICROSCOP Y CULTURE 54766 [facility] BACTERIAL 2 [facility] INC INC QUANTTATI VE COLONY COUNT URINE DETERMINA 41798 SCIFRES SCIFRES TION 2 ANG ANG REFRACTIV E STATE OPHTH 39440 SCIFRES SCIFRES MEDICAL 2 ANG ANG XM&EVAL COMPRHNSV ESTAB PT 1/> CONTRACEP S4993 [facility] TIVE 1 [facility] CONTROL CONTRACEP S4993 [facility] TIVE 1 [facility] CONTROL CONTRACEP A4267 [facility] TIVE 1 [facility] CENTER CONDOM MALE EACH URINE 96662 [facility] 1 [facility] CENTER VISUAL COLOR CMPRSN METHS CONTRACEP A4267 [facility] TIVE 1 [facility] SUP[facility] CENTER CONDOM MALE EACH CONTRACEP J7304 [facility] TIVE 1 [facility] HORMONE CONTAININ G PATCH EA CONTRACEP J7304 [facility] TIVE 0 [facility] HORMONE CONTAININ G PATCH EA IADNA 77814 [facility] NEISSERIA 0 [facility] GONORRHOE AE AMPLIFIED PROBE TQ IADNA 92225 [facility] CHLAMYDIA 0 [facility] TRACHOMAT IS AMPLIFIED PROBE TQ INJ J1055 [facility] MDRXYPRGE 0 [facility] STRON [facility] ACTAT CNTRACPT USE 150 MG INJ J1055 [facility] MDRXYPRGE 0 [facility] ACTAT CNTRACPT USE 150 MG INJ J1055 [facility] MDRXYPRGE 0 [facility] ACTAT CNTRACPT USE 150 MG INJ J1055 [facility] MDRXYPRGE 9 [facility] STRON [facility] ACTAT BANK ACCT CNTRACPT USE 150 MG URINE 39292 [facility] [address] [place] [address] TEST [facility] VISUAL BANK ACCT COLOR CMPRSN METHS URINE 53804 [facility] [address] [place] [address] TEST [facility] VISUAL BANK ACCT COLOR CMPRSN METHS BLOOD 58963 [facility] COUNT 9 [facility] HEMOGLOBI [facility] N BANK ACCT IADNA 18303 [facility] CHLAMYDIA 9 [facility] TRACHOMAT BANK ACCT IS AMPLIFIED PROBE TQ IADNA 22720 [facility] NEISSERIA 9 [facility] GONORRHOE BANK ACCT AE AMPLIFIED PROBE TQ Encounters Encounter Start End Date Code Location Performer Type Date OFFICE 94290 [facility] OUTPATIEN 7 7 PHYSICIAN T VISIT S GROUP 15 MINUTES [facility] T OFFICE 59422 [facility] OUTPATIEN 7 7 PHYSICIAN T VISIT S GROUP 15 MINUTES OFFICE 69799 [facility] OUTPATIEN 7 7 PHYSICIAN T VISIT S GROUP 15 MINUTES OFFICE 74890 [facility] OUTPATIEN 7 7 PHYSICIAN T VISIT S GROUP 15 MINUTES [facility]OSP[facility] - [facility] OUTPATIEN INC T OFFICE 68122 [facility] OUTPATIEN 7 7 PHYSICIAN T VISIT S GROUP 15 MINUTES OFFICE 47217 [facility] OUTPATIEN 7 7 PHYSICIAN T VISIT S GROUP 15 MINUTES OFFICE 02882 [facility] OUTPATIEN 7 7 PHYSICIAN T VISIT S GROUP 15 MINUTES OFFICE 12443 [facility] OUTPATIEN 7 7 PHYSICIAN T VISIT S GROUP 15 MINUTES PERIODIC 44613 [facility] PREVENTIV 7 7 PHYSICIAN E MED EST S GROUP PATIENT 18-39 YRS OFFICE 49444 [facility] OUTPATIEN 6 6 PHYSICIAN T VISIT S GROUP 15 MINUTES OFFICE 06656 [facility] OUTPATIEN 6 6 PHYSICIAN ANH T VISIT S GROUP 15 MINUTES OFFICE 62920 [facility] OUTPATIEN 6 6 PHYSICIAN ANH T VISIT S GROUP 15 MINUTES OFFICE 37893 CAL R [facility] OUTPATIEN 6 6 JAREN THOMAS ANH T VISIT 15 MINUTES PERIODIC 37674 [facility] PREVENTIV 6 6 PHYSICIAN ANH E MED EST S GROUP PATIENT 18-39 YRS HOSP[facility] - 5 5 [facility] INPATIENT INC OFFICE 69733 CAL Damian [facility] OUTPATIEN 5 5 JAREN THOMAS ANH T VISIT 15 MINUTES OFFICE 57158 [facility] OUTPATIEN 5 5 JAREN THOMAS ANH T VISIT 15 MINUTES OFFICE 11842 [facility] OUTPATIEN 5 5 JAREN THOMAS ANH T VISIT 15 MINUTES OFFICE 79404 CAL Damian [facility] OUTPATIEN 5 5 J[facility] THOMAS ANH T VISIT 15 MINUTES [facility] T OFFICE 66862 [facility] OUTPATIEN 5 5 JAREN KAMARA T VISIT 15 MINUTES OFFICE 52807 [facility] OUTPATI[facility] 5 5 JAREN KAMARA T VISIT 15 MINUTES OFFICE 77473 [facility] OUTPATIEN 5 5 JAREN KAMARA T VISIT 15 MINUTES [facility] T OFFICE 40804 [facility] OUTPATI[facility] 5 5 J[facility]EN KAMARA T VISIT 15 MINUTES [facility] T OFFICE 95996 [facility] OUTPATI[facility] 5 5 JAREN KAMARA T VISIT 15 MINUTES OFFICE 13153 [facility] OUTPATIEN 5 5 J[facility]EN KAMARA T VISIT 15 MINUTES [facility] T OFFICE 69939 [facility] 5 5 JAREN KAMARA T VISIT 15 MINUTES OFFICE 11678 [facility] OUTPAT[facility] 5 5 JAREN KAMARA T VISIT 15 MINUTES INITIAL 90709 [facility] EASTMAN PREVENTIV 5 5 JAREN KAMARA E MEDICINE NEW PT AGE 18-39YRS EMERGENCY 66784 [facility] DEPT 4 4 PRIMARY VISIT CARE HIGH PHYSICIAN SEVERITY& S THREAT FUNJ EMERGENCY 98281 SHAYNE WRIGHT 4 4 DEPARTMEN T VISIT MODERATE SEVERITY EMERGENCY 48184 ARTI CHI 4 4 YUDITH YUDITH DEPARTMEN T VISIT MODERATE SEVERITY EMERGENCY 34994 [facility] 4 4 [facility] T VISIT LOW/MODER SEVERITY [facility] - [facility] T EMERGENCY 83734 ARTI CHI 4 4 YUDITH YUDITH DEPARTMEN T VISIT HIGH/URGE NT SEVERITY OFFICE 77479 FAMILY OUTPATIEN 4 4 CARE T VISIT ASSOCIATE 15 S MINUTES OFFICE 31779 [facility] 10 MINUTES OFFICE 12200 MULBERRY MULBERRY OUTPATIEN 3 3 SARAH SARAH T VISIT 15 MINUTES PERIODIC 87543 [facility] PREVENTIV 2 2 [facility] CENTER PATIENT 18-39 YRS OFFICE 26489 FAMILY OUTPATIEN 2 2 CARE T VISIT ASSOCIATE 15 S MINUTES OFFICE 71050 [facility] OUTPATIEN 2 2 [facility] 15 [facility]AL [facility] - [facility] OUT[facility] T EMERGENCY 86892 [facility] 2 2 [facility] DEPARTMEN INC T VISIT LOW/MODER SEVERITY EMERGENCY 75603 ARTI CHI 2 2 YUDITH YUDITH DEPARTMEN T VISIT HIGH/URGE NT SEVERITY OFFICE 16217 [facility] OUT[facility]IEN 1 [facility] 10 MINUTES OFFICE 41929 [facility] OUTPATIEN 1 [facility] 10 MINUTES OFFICE 87251 [facility] OUTPATIEN 1 1 [facility] 10 MINUTES PERIODIC 73837 [facility] PREVENTIV 0 0 [facility] PATIENT 12-17YRS OFFICE 61380 [facility] OUT[facility] 0 [facility] 10 MINUTES OFFICE [id number] [facility] 15 MINUTES OFFICE [id number] [facility] 10 MINUTES OFFICE 17771 [facility] 10 BANK ACCT MINUTES INITIAL [id number] [facility]IV 9 [facility] ACCT NEW PT AGE 12-17 YR
--- OUTSIDE RECORDS SUMMARY | 2017-05-16 03:51 | External Medical Summary Rpt | CCD ---
Author Author , BRANDIN GHOTRA Address Unknown Phone [email or web address] Immunization Name Date Rout CVX Reac Dose Comm Prov Is Faci e tion ent ider Refu lity Give sed n Tdap 07-3 115 0.50 Hist PAYN No H149 , 1-20 mL oric E Adso 15 al DIANA rbed Info rmat ion - Sour ce Unsp ecif ied Tdap 06-0 115 999 Hist H149 No H149 , 8-20 oric Adso 06 al rbed Info rmat ion - Sour ce Unsp ecif ied MMR 04-2 3 999 Hist H149 No H149 1-19 oric 99 al Info rmat ion - Sour ce Unsp ecif ied Gus 04-2 2 999 Hist H149 No H149 o-OP 1-19 oric V 99 al Info rmat ion - Sour ce Unsp ecif ied DTaP 04-2 107 999 Hist H149 No H149 , UF 1-19 oric 99 al Info rmat ion - Sour ce Unsp ecif ied Vari 09-1 Intr 21 999 Hist H149 No H149 cell 0-19 amus oric a 97 cula al r Info rmat ion - Sour ce Unsp ecif ied
--- OUTSIDE RECORDS SUMMARY | 2017-05-16 03:51 | External Medical Summary Rpt | CCD ---
Author Author , BRANDIN GHOTRA Address Unknown Phone [email or web address] Immunization Name Date Rout CVX Reac Dose [...]
[2017-05-16 07:03] LABS: HEMOGLOBIN 10.6 g/dL (12.2-16.2)
[2017-05-16 08:20] VITALS: BP 129/76
--- NOTE | 2017-05-16 11:07 | ACUTE CARE PROGRESS NOTE (QUA) ---
Vaginal Delivery Progress Note Subjective Date 05/16/17 Time 1102 Note Pt doing well. Without complaints. Mild abdominal cramping. Not breast feeding. Breasts bound. Lochia decreasing. Mild ankle/foot edema. Objective Vital signs: Last VS-Temp:97.5 B/P:129/76 Pulse:87 Resp:18 SaO2: Last weight lbs:180 oz:0 K.648 Method:Digital Scales Labs: Laboratory Tests 05/16/17 0625: Hgb 10.6 L, Hct 32.0 L 05/15/17 1420: Cord Blood pH 7.26 L 05/15/17 1230: MCH 28.2 05/15/17 1230: WBC 12.8 H, RBC 4.17 L, Hgb 11.8 L, Hct 34.4 L, MCV 82.5, RDW 13.3, Plt Count 174, MPV 9.9, Gran % 73.6, Gran # 9.5 H, Lymphocytes % 19.9, Monocytes % 4.1, Eosinophils % 2.3, Basophils % 0.1, Lymphocytes # 2.6, Monocytes # 0.5, Eosinophils # 0.3, Basophils # 0.0, PUBS MCHC 34.2, Antibody Screen NEGATIVE, Miscellaneous Test POSITIVE OB exam: Abdominal exam: fundus firm Bowel sounds: non-tender, non-distended exam: lochia normal Assessment/Plan Problem List 1. Labor without complication Patient condition Stable (PPD#1) Plan: continue current care This inpt stay is expected to cross 2 MNs from start of care Yes (OB inpatient stay) Comments: Doing well. Continue routine post- care. Anticipate discharge home tomorrow. at 1106
[2017-05-16 20:03] VITALS: BP 128/70
--- NOTE | 2017-05-17 06:17 | ACUTE CARE PROGRESS NOTE (QUA) ---
Progress Notes Subjective Date 05/17/17 Time 0617 Note This is day number 2. The patient is afebrile. Vital signs stable. Abdomen soft. Lochia normal. Uterine fundus involuting well. Impression: Stable. She will be discharged today. Her hemoglobin is 10.6 g, but she is clinically stable. Assessment/Plan Problem List 1. Labor without complication This inpt stay is expected to cross 2 MNs from start of care Yes (OB inpatient stay) at 0617
--- NOTE | 2017-05-17 06:21 | DISCHARGE SUMMARY STANDARD ---
Discharge Summary Date of admission: 05/15/17 Date of discharge: 05/17/17 Patient condition: Stable Discharge diagnosis (es): 1. Term intrauterine , delivered. 2. Anemia. Hospital course: This 22-year-old 2, now para 2, AB 0 white female was admitted at 38-4/7 weeks in active labor at 6 cm of dilatation. She went steadily to completion ( under labor epidural, which worked well), and delivered spontaneously, without an episiotomy, on 05/15/17 at 1420. The baby was an 8/9, 7 lbs. 8 oz., 19 inch male , who is bottlefeeding, has been circumcised, and has done well. , the patient has done well. She is eating and ambulating, and has had a bowel movement. Her abdomen is soft. Her uterine fundus is involuting well. Her lochia is normal. Her hemoglobin is 10.6 g, but she is clinically stable. She is not a smoker. She is discharged home on the second day on iron and vitamins, and on Tylenol and Motrin, as needed for pain. She is given appropriate instructions as to diet and exercise, and she is to return the office in 3 weeks for follow-up. Her blood type is O positive. Her rubella titer is nonimmune, and she'll be vaccinated prior to discharge. at 8031
[2017-05-17 08:15] VITALS: BP 141/78
== END 2017-05-17 10:30 | disposition home or self-care (01) | DRG 775 ==
LOC: OB 11:10 → OBOUT 11:10 → OB 12:20
PROVIDERS: Obstetrics & Gynecology
PROC: 10D07Z6 Extraction of Products of Conception, Vacuum, Via Natural or Artificial Opening (ICD-10-PCS; principal; 2017-05-15)
DX: O76 Abnormality in fetal heart rate and rhythm complicating labor and delivery (principal); Z37.0 Single live birth; Z3A.38 38 weeks gestation of pregnancy
CPT/HCPCS: Q2038